=== PATIENT | male | born 1980 | race Caucasian/White ===

== ENCOUNTER 2023-06-05 00:07 | Emergency (ER) | payer OTHER, SELFPAY ==
--- NOTE | 2023-06-05 | ECG_ITS ---
Test Reason : CHEST PAIN Blood Pressure : / mmHG Vent. Rate : 062 BPM Atrial Rate : 062 BPM P-R Int : 136 ms QRS Dur : 084 ms QT Int : 410 ms P-R-T Axes : 067 039 060 degrees QTc Int : 416 ms Normal sinus rhythm Normal ECG When compared with ECG of 07-APR-2016 17:51, Vent. rate has decreased BY 32 BPM Referred By: Generic ED Physician Electronically Signed By:GIANNA CROCKETT
--- NOTE | ~2023-06-05 | XR_ITS ---
EXAMINATION: XR CHEST CLINICAL INFORMATION: Pain COMPARISON: 03/18/2016 TECHNIQUE: 2 views of the chest were obtained. FINDINGS: The lungs are clear with no focal consolidation. No evidence of pneumothorax, pulmonary edema, or pleural effusions. The cardiomediastinal silhouette is unremarkable. No acute osseous findings. XR/XR chest 2V IMPRESSION: No acute cardiopulmonary findings.
[2023-06-05 00:20] VITALS: BP 142/62; PULSE 67; RESP 20; TEMP 36.9; O2SAT 98; BMI 29.4
[2023-06-05 00:32] LABS: Hematocrit 41.9 % (42.0-52.0); Hemoglobin 14.7 g/dl (14.0-18.0); Mean Corpuscular HGB Conc 35.1 g/dl (31.0-36.0); Mean Corpuscular Hemoglobin 32.2 pg (27.0-33.0); Mean Corpuscular Volume 91.9 fL (80.0-98.0); Mean Platelet Volume 10.6 fL (9.4-12.4); Platelet Count 247 X10*3/uL (160-400); Red Blood Count 4.56 X10*6/uL (4.60-5.80); White Blood Count 10.2 X10*3/uL (4.8-10.8)
--- NOTE | 2023-06-05 00:37 | MHC.EDTECH ---
PATIENT EKG TAKEN ,BLOOD DRAWN IN TRIAGE BY THIS PCT ,PT WAS BROUGHT BACK TO ROOM AND WAS HOOKED UP TO [facility] ,WARM BLANKET GIVEN ,PT IS RESTING WAITING TO SEE PROVIDER .
[2023-06-05 00:48] LABS: Alanine Aminotransferase 19 U/L (0-40); Albumin Level 4.3 g/dL (3.5-5.0); Alkaline Phosphatase 81 U/L (39-117); Anion Gap 14 (12-20); Aspartate Amino Transferase 18 U/L (5-37); Bilirubin Total 0.6 mg/dL (0.0-1.0); Blood Urea Nitrogen 9 mg/dL (9-16); Calcium 9.2 mg/dL (8.4-10.2); Carbon Dioxide 23 mmol/L (22-29); Chloride 108 mmol/L (96-108); Creatinine Clr Calc Pharmacy 125.4; Estimated Glomerular Filt Rate > 60; Glucose Random 101 mg/dL (60-115); Potassium 3.7 mmol/L (3.3-5.1); Sodium 141 mmol/L (135-145); Total Protein 6.9 g/dL (6.5-8.0)
[2023-06-05 00:53] LABS: Troponin-I High Sensitivity < 2.7 ng/L (<3.5-35.0)
--- NOTE | 2023-06-05 01:14 | ED_ITS ---
HPI - Chest Pain General Chief Complaint: Chest Pain Stated Complaint: Chest pain Time Seen by Provider: 06/05/23 00:44 Source: patient, RN notes reviewed and old records reviewed Mode of arrival: ambulatory Limitations: no limitations History of Present Illness HPI narrative: 43-year-old male past medical history significant for GERD, anxiety presents for evaluation of left-sided chest pain. Patient reports that his pain started about 2 weeks ago He reports that his symptoms started after he got a new bed He has reports the symptoms worsened last night while at work He states that he had a physically stressful assignment at work last night and he had to leave early due to the pain He states the pain is intermittent ?like an electric shock. ? He reports that he smokes cigarettes and marijuana His symptoms also worsened after drinking an energy drink Denies any cardiac history No fevers, chills, shortness of breath, cough Related Data Allergies Allergy/AdvReac Type Severity Reaction Status Date / Time No Known Allergies Allergy Unverified 05/24/20 18:03 [No Known Allergies*] Review of Systems 2 Constitutional: Constitutional: Denies chills and Denies fever(s) ENT: Denies sore throat Cardiovascular: Cardiovascular: Reports chest pain and Denies dyspnea Respiratory: Respiratory: Denies cough and Denies dyspnea Gastrointestinal: Gastrointestinal: Denies abdominal pain, Denies nausea and Denies vomiting Musculoskeletal: Musculoskeletal: Denies back pain Integumentary/Breasts: Skin/Breast: Denies rash PMFSH Social History Social History Advance Directives: No Advance Directives Information Provided: Yes Physical Exam 2 Vital Signs: Vital Signs: Last Vital Signs Temp 98.5 F 06/05/23 00:20 Pulse 67 06/05/23 00:20 Resp 20 06/05/23 00:20 BP 142/62 H 06/05/23 00:20 Pulse Ox 98 06/05/23 00:20 O2 Del Method Room Air 06/05/23 00:20 BMI result Body Mass Index 29.4 Const: General: healthy appearing, comfortable, no acute distress, alert and awake Nutritional Appearance: well nourished Orientation/consciousness: p atient oriented x3 HEENT: Head: Yes normocephalic and Yes atraumatic Throat: Yes posterior oropharynx normal Eyes: Eyelids: Yes eyelids normal Conjunctivae: conjunctivae normal S clerae: sclerae normal Corneas: corneas normal Pupils: Equal, round and reactive pupils present EOM: EOMs intact bilaterally Neck: Neck: Yes full ROM Chest: Other: Some left chest wall tenderness in the midclavicular line. No crepitus, deformity Chest palpation & inspection: normal inspection of the chest Resp: Effort & Inspection: normal respiratory effort, able to speak in complete sentences, no audible wheezes and not labored Auscultation: clear to auscultation bilaterally Cardio: Rate: regular rate Rhythm: regular rhythm GI: Inspection: No distended Palpation (GI): Soft to palpation, not firm, nontender, no guarding and not rigid Auscultation: normoactive bowel sounds Skin: General skin exam: no rashes or lesions noted and elasticity normal Neuro: General: patient oriented x3 Cranial nerves: Yes Equal, round and reactive pupils present and Yes Bilaterally intact EOM present Cognition (Neuro): normal cognition Medical Decision Making Medical Decision Making [facility] Narrative: 43-year-old male presents for evaluation of chest pain. He is a smoker but otherwise has no risk factors for ACS. His EKG is nonischemic. Initial troponin is negative despite over 2 weeks after onset of symptoms. This effectively rules out ACS. Lower suspicion for pneumothorax, but the patient is a smoker so we waited chest x-ray. His pain is reproducible, so likely musculoskeletal in origin. There is likely a component of anxiety. He is minimally hypertensive to 142/62. This could be related to white coat syndrome/anxiety. No abdominal pain or radiation through to the back, AAA less likely. No risk factors for PE, he is not tachycardic, hypoxic or tachypneic Differential Diagnosis Differential Diagnoses: The differential diagnosis associated with the presentation includes Chest pain Chest wall pain ACS Anxiety Pneumothorax Admission/Observation Consideration of admission/observation: Escalation of care including admission/observation considered No acute emergent causes of chest pain were discovered and the patient can be discharged to follow-up with his PCP Lab Data [facility] Lab Attestation statement: I reviewed the patient's lab results. No leukocytosis. No significant anemia. However the hematocrit is just below normal at 41.9. No electrolyte abnormalities. Negative troponin 06/05/23 00:26 06/05/23 00:26 Labs: Lab Results 06/05/23 Range/Units 00:26 WBC 10.2 (4.8-10.8) X10*3/uL RBC 4.56 L (4.60-5.80) X10*6/uL Hgb 14.7 (14.0-18.0) g/dl Hct 41.9 L (42.0-52.0) % MCV 91.9 (80.0-98.0) fL MCH 32.2 (27.0-33.0) pg MCHC 35.1 (31.0-36.0) g/dl RDW 12.0 (11.0-16.0) % Plt Count 247 (160-400) X10*3/uL MPV 10.6 (9.4-12.4) fL Absolute Nucleated RBC 0.000 (0.0-0.012) X10*3/uL Nucleated RBC % (auto) 0.0 (0.0-0.2) /100WBC Sodium 141 (135-145) mmol/L Potassium 3.7 (3.3-5.1) mmol/L Chloride 108 (96-108) mmol/L Carbon Dioxide 23 (22-29) mmol/L Anion Gap 14 (12-20) BUN 9 (9-16) mg/dL Creatinine 0.87 (0.5-1.4) mg/dL Estim Creat Clear Calc 125.4 Estimated GFR > 60 Random Glucose 101 (60-115) mg/dL Calcium 9.2 (8.4-10.2) mg/dL Total Bilirubin 0.6 (0.0-1.0) mg/dL AST 18 (5-37) U/L ALT 19 (0-40) U/L Alkaline Phosphatase 81 (39-117) U/L Troponin I High Sens < 2.7 (<3.5-35.0) ng/L Total Protein 6.9 (6.5-8.0) g/dL Albumin 4.3 (3.5-5.0) g/dL Independent Interpretation I performed an independent interpretation of an: EKG (Normal sinus rhythm with a rate of 62 beats per minute. Nonischemic EKG) and Plain X-Ray (No pneumothorax) Discharge Plan Discharge Clinical Impression: Chest pain Patient Disposition: Home, Self-Care Instructions: Chest Pain (ED) Additional Instructions: Her workup in the emergency department today was reassuring. This includes your blood work, EKG, and chest x-ray. Your pain may be musculoskeletal in origin, there may be some component of anxiety contributing to your symptoms You may follow-up with your primary doctor
--- NOTE | 2023-06-05 01:51 | PC.NURSE ---
pt a&o, no sob or chest pain, reviewed discharge instructions with pt. pt verbalized understanding. Will continue to monitor.
== END 2023-06-05 01:52 | disposition home or self-care (01) ==
PROVIDERS: Emergency Provider Emergency Medicine
DX: R07.89 Other chest pain (principal); F41.9 Anxiety disorder, unspecified; F17.210 Nicotine dependence, cigarettes, uncomplicated; Z71.6 Tobacco abuse counseling; F12.90 Cannabis use, unspecified, uncomplicated; Z79.899 Other long term (current) drug therapy
CPT/HCPCS: 36415; 71046; 80053; 84484; 85027; 93005; 99283

== ENCOUNTER 2023-09-08 23:38 | Emergency (ER) | payer OTHER, SELFPAY ==
[2023-09-08 23:50] VITALS: BP 133/76; PULSE 64; RESP 16; TEMP 36.6; O2SAT 98; BMI 28.7
[2023-09-09 00:18] LABS: MANUAL DIFF FLAG NO
[2023-09-09 00:20] LABS: Basophils Absolute Auto 0.1 X10*3/uL (0.0-0.2); Eosinophils Percent Auto 0.5 % (0-4); Hemoglobin 16.3 g/dl (14.0-18.0); Imm Gran Abs Auto 0.02 X10*3/uL (0.00-0.03); Imm Gran Pct Auto 0.2 % (0.0-0.4); Lymphocytes Absolute Auto 3.3 X10*3/uL (1.2-4.9); Lymphocytes Percent Auto 41.4 % (20-40); Mean Corpuscular HGB Conc 36.2 g/dl (31.0-36.0); Mean Corpuscular Hemoglobin 31.9 pg (27.0-33.0); Mean Corpuscular Volume 88.1 fL (80.0-98.0); Mean Platelet Volume 10.5 fL (9.4-12.4); Monocytes Absolute Auto 0.5 X10*3/uL (0.1-1.2); Monocytes Percent Auto 6.6 % (2-11); Neutrophils Absolute Auto 4.1 x10*3/uL (2.0-8.3); Neutrophils Percent Auto 50.3 % (45-73); Platelet Count 261 X10*3/uL (160-400); Red Blood Count 5.11 X10*6/uL (4.60-5.80); Red Cell Distribution Width 11.8 % (11.0-16.0); White Blood Count 8.1 X10*3/uL (4.8-10.8)
[2023-09-09 00:44] LABS: Alanine Aminotransferase 25 U/L (0-40); Albumin Level 4.4 g/dL (3.5-5.0); Alkaline Phosphatase 83 U/L (39-117); Anion Gap 15 (12-20); Aspartate Amino Transferase 24 U/L (5-37); Bilirubin Total 0.6 mg/dL (0.0-1.0); Blood Urea Nitrogen 6 mg/dL (9-16); Calcium 8.9 mg/dL (8.4-10.2); Carbon Dioxide 26 mmol/L (22-29); Chloride 105 mmol/L (96-108); Glucose Fasting 139 mg/dL (60-99); Potassium 3.2 mmol/L (3.3-5.1); Sodium 143 mmol/L (135-145); Total Protein 7.6 g/dL (6.5-8.0)
[2023-09-09 00:56] LABS: Creatinine Clr Calc Pharmacy 111.2; Estimated Glomerular Filt Rate > 60
[2023-09-09 00:59] LABS: Influenza A PCR NEGATIVE (Negative); Influenza B PCR NEGATIVE (Negative); Resp Syncy Virus RNA Qual PCR NEGATIVE (Negative); SARS COV2 PCR INHOUSE NEGATIVE (Negative)
--- NOTE | 2023-09-09 05:30 | PC.NURSE ---
Assumed care of pt. During assessment, pt noted to be breathing rapidly during explanation, and endorsed anxiety with concerns. Currently asymptomatic and states that symptoms have largely resolved.
--- NOTE | 2023-09-09 06:45 | ED_ITS ---
HPI - General Adult General Chief complaint: General Medical Stated complaint: Not feeling well Time Seen by Provider: 09/09/23 06:42 Source: patient Mode of arrival: ambulatory Limitations: no limitations History of Present Illness HPI narrative: Patient is a 43 year old assigned female at with no reported medical history presenting to the emergency department today feeling generally unwell and concerned that he is dehydrated. Patient states that over the last 4 days he has felt generally unwell and is concerned that he is dehydrated. Patient denies any dizziness, lightheadedness, abdominal pain, nausea, vomiting, fever, chills, blurry vision, double vision, loss of vision, chest pain, difficulty breathing, shortness of breath, back pain, night sweats, pain with urination, increased urinary frequency, increased urinary urgency, blood in his urine or stool, syncope or a near syncopal episode, recent trauma or falls, bowel incontinence, bladder incontinence, bowel retention, bladder retention, or any other complaints at this time. Onset (ago): day(s) (4) Severity: mild Severity scale (1-10): 2 Relieving factors: none Exacerbating factors: none Associated symptoms: denies other symptoms Treatments prior to arrival: none Related Data Allergies Allergy/AdvReac Type Severity Reaction Status Date / Time No Known Allergies Allergy Unverified 05/24/20 18:03 [No Known Allergies*] Review of Systems 2 Constitutional: Constitutional: Reports no additional constitutional complaints, Denies chills, Denies fever(s) and Denies night sweats Eyes: Eyes: Reports no additional eye complaints, Denies blurry vision, Denies change in vision, Denies diplopia, Denies eye discharge, Denies loss of vision and Denies eye pain ENT: Denies dizziness Cardiovascular: Cardiovascular: Reports no additional cardiovascular complaints, Denies chest pain, Denies lightheadedness, Denies Loss of Consciousness and Denies dyspnea Respiratory: Respiratory: Reports no additional respiratory complaints and Denies dyspnea Gastrointestinal: Gastrointestinal: Reports no additional gastrointestinal complaints, Denies abdominal pain, Denies melena, Denies hematochezia, Denies change in bowel habits and Denies change in stool character Genitourinary: Genitourinary: Reports no additional male genitourinary complaints, Denies hematuria, Denies oliguria, Denies difficulty urinating, Denies dysuria, Denies urinary frequency, Denies urinary hesitancy, Denies urinary incontinence and Denies urinary urgency Musculoskeletal: Musculoskeletal: Reports no additional musculoskeletal complaints, Denies numbness and Denies tingling Neurologic: Denies dizziness, Denies loss of vision, Denies numbness and Denies tingling Psychiatric: Psychiatric: Reports no additional psychiatric complaints Endocrine: Endocrine: Reports no additional endocrine complaints Hematologic/Lymphatic: Hematologic/Lymphatic: Reports no additional hematologic/lymphatic complaints Allergic/Immunologic: Allergic/Immunologic: Reports no additional allergic/immunologic complaints PMFSH Past Medical History Attestation statement: The following information was validated with the patient. Source: old records reviewed and nursing notes reviewed Onset Date is defined in the Problem List Problems that require an onset date and time if occurred within 24 hrs of arrival to the ED Aortic Dissection and Rupture; Neurologic impairment; Cardiopulmonary Arrest; Endotracheal Intubation; Insertion or Replacement of Mechanical Circulatory Assist Device Social History Social History Smoked in Last 30 Days: Yes Use of substances other than those prescribed or required for medical reasons: Yes Substance Use Type: Marijuana Substance Use Frequency: Chronic Longstanding Advance Directives: No Advance Directives Information Provided: Yes Physical Exam ED Vital Signs: Vital Signs - 24 hr 09/08/23 23:50 Temperature 98 F Pulse Rate 64 Respiratory Rate 16 Blood Pressure 133/76 Pulse Oximetry 98 Oxygen Delivery Method Room Air BMI result Body Mass Index 28.7 Const General: cooperative, no acute distress, alert and awake Nutritional Appearance: well nourished Orientation/consciousness: patient oriented x3 Limitations: no limitations [facility] Head: Yes normal to inspection and Yes atraumatic Ears: hearing grossly normal bilaterally and external ears normal General nose exam: Normal external nose present, no nasal discharge noted and no epistaxis Face and sinus: Yes normal facial exam, No abrasion and No laceration Mouth: Normal oral and palatal mucosa present, no drooling and no muffled voice Eyes General: appearance normal, both eyes and all related structures Periorbital: periorbital findings normal Eyelids: Yes eyelids normal Conjunctivae: conjunctivae normal Pupils: Equal, round and reactive pupils present EOM: EOMs intact bilaterally Neck Neck: Yes normal visual inspection, Yes full ROM and Yes no lymphadenopathy Chest Chest palpation & inspection: normal inspection of the chest Resp Effort & Inspection: normal respiratory effort and able to speak in complete sentences GI Inspection: Yes normal to inspection Neuro General: patient oriented x3 and moves all extremities Cranial nerves: Yes Equal, round and reactive pupils present Cognition (Neuro): normal cognition Motor exam (neuro): 5/5 motor strength present throughout Sensory Exam: Normal double simultaneous stimulation for sensation Coordination: [id number] test normal Extrem General: Yes normal to inspection, Yes full ROM and Yes capillary refill normal Psych Appearance: grossly normal Mental Status: mental status grossly normal Affect: normal affect Attitude: cooperative Thought process: Normal thought process present Thought content: Normal thought content present Insight: Good insight present (Psych) Medical Decision Making Medical Decision Making MDM Narrative: Patient is a 43 year old assigned male at with no reported medical history presenting to the emergency department today feeling generally unwell and concerns of dehydration. Patient's physical exam was unremarkable. Patient's blood work was unremarkable. I explained my physical exam findings as well as all test results to the patient. I answered all questions asked by the patient. I stressed the importance of the patient taking his medication as prescribed. I stressed the importance of the patient following up with his primary care provider. I stressed the importance of the patient returning to the emergency department immediately if his symptoms were to worsen or if he were to develop any dizziness, shortness of breath, difficulty breathing, chest pain, blurry vision, loss of vision, nausea, vomiting, abdominal pain, fever, chills, back pain, or any other complaints. Patient verbalized agreement and understanding with this treatment plan and discharge. Differential Diagnosis Differential Diagnoses: The differential diagnosis associated with the presentation includes Viral illness COVID-19 Influenza RSV Admission/Observation Consideration of admission/observation: Escalation of care including admission/observation considered Patient would have been admitted to the hospital had his work up had any findings where hospital admission was appropriate and his clinical presentation warranted hospital admission. Lab Data MDM Lab Attestation statement: I reviewed the patient's lab results. My interpretation of these studies and their corresponding values is that they are grossly normal. 09/09/23 00:14 09/09/23 00:14 Labs: Lab Results 09/09/23 Range/Units 00:14 WBC 8.1 (4.8-10.8) X10*3/uL RBC 5.11 (4.60-5.80) X10*6/uL Hgb 16.3 (14.0-18.0) g/dl Hct 45.0 (42.0-52.0) % MCV 88.1 (80.0-98.0) fL MCH 31.9 (27.0-33.0) pg MCHC 36.2 H (31.0-36.0) g/dl RDW 11.8 (11.0-16.0) % Plt Count 261 (160-400) X10*3/uL MPV 10.5 (9.4-12.4) fL Immature Gran % (Auto) 0.2 (0.0-0.4) % Neut % (Auto) 50.3 (45-73) % Lymph % (Auto) 41.4 H (20-40) % [place] % (Auto) 6.6 (2-11) % Eos % (Auto) 0.5 (0-4) % Baso % (Auto) 1.0 (0-2) % Lymph # (Auto) 3.3 (1.2-4.9) X10*3/uL [place] # (Auto) 0.5 (0.1-1.2) X10*3/uL Eos # (Auto) 0.0 (0.0-0.4) X10*3/uL Baso # (Auto) 0.1 (0.0-0.2) X10*3/uL Abs Immat Gran (auto) 0.02 (0.00-0.03) X10*3/uL Absolute Neuts (auto) 4.1 (2.0-8.3) x10*3/uL Absolute Nucleated RBC 0.000 (0.0-0.012) X10*3/uL Nucleated RBC % (auto) 0.0 (0.0-0.2) /100WBC Sodium 143 (135-145) mmol/L Potassium 3.2 L (3.3-5.1) mmol/L Chloride 105 (96-108) mmol/L Carbon Dioxide 26 (22-29) mmol/L Anion Gap 15 (12-20) BUN 6 L (9-16) mg/dL Creatinine 0.97 (0.5-1.4) mg/dL Estim Creat Clear Calc 111.2 Estimated GFR > 60 Fasting Glucose 139 H (60-99) mg/dL Calcium 8.9 (8.4-10.2) mg/dL Total Bilirubin 0.6 (0.0-1.0) mg/dL AST 24 (5-37) U/L ALT 25 (0-40) U/L Alkaline Phosphatase 83 (39-117) U/L Total Protein 7.6 (6.5-8.0) g/dL Albumin 4.4 (3.5-5.0) g/dL Influenza Type A (PCR) NEGATIVE (Negative) Influenza Type B (PCR) NEGATIVE (Negative) RSV RNA Qual (PCR) NEGATIVE (Negative) SARS-CoV-2 RNA (RT-PCR) NEGATIVE (Negative) Discharge Plan Discharge Clinical Impression: Viral illness Patient Disposition: Home, Self-Care Instructions: Viral Syndrome (ED) Additional Instructions: Follow up with your primary care provider. Return to the emergency department immediately if your symptoms worsen or if you develop any dizziness, shortness of breath, difficulty breathing, chest pain, blurry vision, loss of vision, nausea, vomiting, abdominal pain, fever, chills, back pain, or any other complaints. Referrals: Tyson Edwards MD [Primary Care Provider] - Stand Alone Forms: Work/School Release Interventions: ED Discharge Assessment Last Done: 09/09/23 06:55 Discharge Date/Time: 09/09/23 06:56 Print Language: [place]
== END 2023-09-09 06:56 | disposition home or self-care (01) ==
PROVIDERS: Emergency Provider Student in an Organized Health Care Education/Training Program; PCP Family Medicine
DX: B34.9 Viral infection, unspecified (principal); Z20.822 Contact with and (suspected) exposure to COVID-19; Z20.828 Contact with and (suspected) exposure to other viral communicable diseases
CPT/HCPCS: 0241U; 80053; 85025; 99283; 99284

== ENCOUNTER 2024-10-02 10:00 | Emergency (ER) | payer OTHER, SELFPAY ==
[2024-10-02 10:12] VITALS: BP 139/73; PULSE 83; RESP 18; TEMP 36.2; O2SAT 97; BMI 24.7
[2024-10-02 11:53] LABS: MANUAL DIFF FLAG NO
[2024-10-02 11:55] LABS: Basophils Percent Auto 0.6 % (0-2); Eosinophils Percent Auto 0.2 % (0-4); Hematocrit 48.8 % (42.0-52.0); Hemoglobin 17.6 g/dl (14.0-18.0); Imm Gran Abs Auto 0.01 X10*3/uL (0.00-0.03); Imm Gran Pct Auto 0.2 % (0.0-0.4); Lymphocytes Absolute Auto 2.1 X10*3/uL (1.2-4.9); Lymphocytes Percent Auto 39.8 % (20-40); Mean Corpuscular HGB Conc 36.1 g/dl (31.0-36.0); Mean Corpuscular Hemoglobin 31.8 pg (27.0-33.0); Mean Corpuscular Volume 88.2 fL (80.0-98.0); Mean Platelet Volume 11.3 fL (9.4-12.4); Monocytes Absolute Auto 0.7 X10*3/uL (0.1-1.2); Monocytes Percent Auto 12.8 % (2-11); Neutrophils Absolute Auto 2.4 x10*3/uL (2.0-8.3); Neutrophils Percent Auto 46.4 % (45-73); Platelet Count 210 X10*3/uL (160-400); Red Blood Count 5.53 X10*6/uL (4.60-5.80); Red Cell Distribution Width 11.7 % (11.0-16.0); White Blood Count 5.2 X10*3/uL (4.8-10.8)
[2024-10-02 12:08] LABS: Anion Gap 14 (12-20); Blood Urea Nitrogen 8 mg/dL (9-16); Calcium 8.8 mg/dL (8.4-10.2); Carbon Dioxide 27 mmol/L (22-29); Chloride 99 mmol/L (96-108); Creatinine Clr Calc Pharmacy 103.5; Estimated Glomerular Filt Rate > 60; Glucose Random 119 mg/dL (60-115); Potassium 3.2 mmol/L (3.3-5.1); Sodium 137 mmol/L (135-145)
[2024-10-02 12:31] LABS: Influenza A PCR POSITIVE (Negative); Influenza B PCR NEGATIVE (Negative); Resp Syncy Virus RNA Qual PCR NEGATIVE (Negative); SARS COV2 PCR INHOUSE NEGATIVE (Negative)
--- NOTE | 2024-10-02 12:40 | ED.NAVMDI ---
HPI - Nausea/Vomiting/Diarrhea General Chief complaint: Nausea/Vomiting/Diarrhea Stated complaint: Dehydrated Time Seen by Provider: 10/02/24 12:42 Source: patient Mode of arrival: ambulatory Limitations: no limitations History of Present Illness ED Provider: Veronika Ellison APRN HPI Narrative: 44 yo male with history of GERD presents to the ER with 2-3 days of body aches, NBNB emesis, diarrhea with no associated abdominal pain, fever. Today felt tingling all over his body bringing him to the ER. No chest pain, shortness of breath, skin rash, neck pain/stiffness, cough, headache. No recent travel or sick contact. Associated nausea: Yes Related Data Previous Rx's ?Medication ?Instructions ?Recorded ondansetron 4 mg disintegrating 4 mg PO Q6H PRN nausea and 10/02/24 tablet vomiting #12 tabs Allergies Allergy/AdvReac Type Severity Reaction Status Date / Time No Known Allergies Allergy Verified 10/02/24 10:14 [No Known Allergies*] Review of Systems Review of Systems: Yes all other systems are reviewed and are negative Constitutional: Constitutional: Reports no additional constitutional complaints, Reports body ache(s), Denies chills, Denies fever(s), Denies headache(s) and Denies weakness Eyes: Eyes: Reports no additional eye complaints and Denies change in vision ENT: Reports system reviewed and no additional complaints, except as documented, Denies dizziness, Denies headache(s), Denies nasal congestion, Denies nasal discharge and Denies neck pain Cardiovascular: Cardiovascular: Reports no additional cardiovascular complaints, Denies chest pain, Denies leg edema and Denies dyspnea Respiratory: Respiratory: Reports no additional respiratory complaints, Denies cough and Denies dyspnea Gastrointestinal: Gastrointestinal: Reports no additional gastrointestinal complaints, Denies abdominal pain, Reports diarrhea, Reports nausea and Reports vomiting Genitourinary: Genitourinary: Denies urinary incontinence Musculoskeletal: Musculoskeletal: Reports no additional musculoskeletal complaints, Denies back pain, Denies arthralgias, Denies joint swelling, Denies neck pain, Denies numbness and Denies tingling Integumentary/Breasts: Skin/Breast: Reports system reviewed and no additional complaints, except as docu and Denies rash Neurologic: Reports system reviewed and no additional complaints, except as documented, Denies Abnormal speech present, Denies dizziness, Denies headache(s), Denies numbness, Denies tingling and Denies weakness [facility] Past Medical History Attestation statement: The following information was validated with the patient. Source: old records reviewed and nursing notes reviewed Social History Social History Substance Use Type: Marijuana Advance Directives: No Advance Directives Information Provided: Yes Do you have a plan to hurt others: No Plan Physical Exam Vital Signs: Vital Signs: Last Vital Signs Temp 98.9 F 10/02/24 12:49 Pulse 96 10/02/24 12:49 Resp 18 10/02/24 12:49 BP 124/71 10/02/24 12:49 Pulse Ox 96 10/02/24 12:49 O2 Del Method Room Air 10/02/24 12:49 BMI result Body Mass Index 24.7 Const: General: cooperative, healthy appearing, comfortable and no acute distress Orientation/consciousness: patient oriented x3 Limitations: no limitations HEENT: Head: Yes normal to inspection Ears: hearing grossly normal bilaterally and TM's normal bilaterally General nose exam: Normal external nose present Face and sinus: Yes normal facial exam Mouth: Normal oral and palatal mucosa present Throat: Yes posterior oropharynx normal, Yes tonsils normal and Yes uvula midline Eyes: General: appearance normal, both eyes and all related structures Pupils: Equal, round and reactive pupils present Neck: Neck: Yes normal visual inspection, Yes full ROM, Yes no lymphadenopathy and Yes no meningeal signs Chest: Chest palpation & inspection: normal inspection of the chest Resp: Effort & Inspection: normal respiratory effort Auscultation: clear to auscultation bilaterally Cardio: Rate: regular rate Rhythm: regular rhythm Peripheral pulses: Peripheral pulses 2+ throughout GI: Inspection: Yes normal to inspection Palpation (GI): Soft to palpation and nontender Auscultation: normal bowel sounds Back/Spine/Pelvis: Thoracic/Lumbar Spine: thoracic and lumbar spine normal to inspection Skin: General skin exam: no rashes or lesions noted Neuro: General: patient oriented x3, no meningeal signs, no focal motor deficits and normal sensation to monofilament Cranial nerves: Yes Equal, round and reactive pupils present Cognition (Neuro): normal cognition Speech: No Abnormal speech present Gait exam (Neuro): Normal gait present Motor exam (neuro): 5/5 motor strength present throughout Extrem: General: Yes normal to inspection, Yes no pedal edema and Yes no calf tenderness Course Course Course Narrative: Influenza A positive. Patient sipping on clear liquids, labs show milk hypokalemia otherwise normal. Will give rx for zofran and patient can orally rehydrate at home. Patient has normal vs, does not appear clinically dehydrated. Would not give tamiflu d/t current symptoms and reported side effects. patient agreeable to this. Reviewed worrisome signs/symptoms with patient and when to seek additional care. Comfortable with discharge home. Medical Decision Making Medical Decision Making [facility] Narrative: 44 yo male with history of GERD presents to the ER with 2-3 days of body aches, NBNB emesis, diarrhea with no associated abdominal pain, fever. Today felt tingling all over his body bringing him to the ER. No chest pain, shortness of breath, skin rash, neck pain/stiffness, cough, headache. No recent travel or sick contact. Abdomen soft/nonfocal VSS Will send labs, obtain viral testing Differential Diagnosis Differential Diagnoses: The differential diagnosis associated with the presentation includes Viral syndrome, gastroenteritis, influenza Low suspicion for SBO, appendicitis, renal colic, pyelo with no focal abdominal pain, CVAT Admission/Observation Consideration of admission/observation: Escalation of care including admission/observation considered see course of care Lab Data [facility] Lab Attestation statement: I reviewed the patient's lab results. 10/02/24 11:22 10/02/24 11:23 Labs: Lab Results 10/02/24 10/02/24 Range/Units 11:22 11:23 WBC 5.2 (4.8-10.8) X10*3/uL RBC 5.53 (4.60-5.80) X10*6/uL Hgb 17.6 (14.0-18.0) g/dl Hct 48.8 (42.0-52.0) % MCV 88.2 (80.0-98.0) fL MCH 31.8 (27.0-33.0) pg MCHC 36.1 H (31.0-36.0) g/dl RDW 11.7 (11.0-16.0) % Plt Count 210 (160-400) X10*3/uL MPV 11.3 (9.4-12.4) fL Immature Gran % (Auto) 0.2 (0.0-0.4) % Neut % (Auto) 46.4 (45-73) % Lymph % (Auto) 39.8 (20-40) % [place] % (Auto) 12.8 H (2-11) % Eos % (Auto) 0.2 (0-4) % Baso % (Auto) 0.6 (0-2) % Lymph # (Auto) 2.1 (1.2-4.9) X10*3/uL [place] # (Auto) 0.7 (0.1-1.2) X10*3/uL Eos # (Auto) 0.0 (0.0-0.4) X10*3/uL Baso # (Auto) 0.0 (0.0-0.2) X10*3/uL Abs Immat Gran (auto) 0.01 (0.00-0.03) X10*3/uL Absolute Neuts (auto) 2.4 (2.0-8.3) x10*3/uL Absolute Nucleated RBC 0.000 (0.0-0.012) X10*3/uL Nucleated RBC % (auto) 0.0 (0.0-0.2) /100WBC Sodium 137 (135-145) mmol/L Potassium 3.2 L (3.3-5.1) mmol/L Chloride 99 (96-108) mmol/L Carbon Dioxide 27 (22-29) mmol/L Anion Gap 14 (12-20) BUN 8 L (9-16) mg/dL Creatinine 0.94 (0.5-1.4) mg/dL Estim Creat Clear Calc 103.5 Estimated GFR > 60 Random Glucose 119 H (60-115) mg/dL Calcium 8.8 (8.4-10.2) mg/dL Influenza Type A (PCR) POSITIVE A (Negative) Influenza Type B (PCR) NEGATIVE (Negative) RSV RNA Qual (PCR) NEGATIVE (Negative) SARS-CoV-2 RNA (RT-PCR) NEGATIVE (Negative) Tests considered The following testing was considered but not selected: Low suspicion for SBO, appendicitis, renal colic, pyelo with no focal abdominal pain, CVAT requiring CT imaging Prescription Management I considered prescription management with: Antiviral Discharge Plan Discharge Clinical Impression: Influenza A Patient Disposition: Home, Self-Care Instructions: Influenza (ED) Additional Instructions: Your blood work looks good We discussed not using Tamiflu because it may cause you to have more vomiting/diarrhea Start with clear liquids, then advance diet as tolerated Prescriptions: New ondansetron 4 mg tablet,disintegrating 4 mg PO Q6H PRN (Reason: nausea and vomiting) Qty: 12 0RF Referrals: Tyson Edwards MD [Primary Care Provider] - 1 week Stand Alone Forms: Work/School Release Interventions: ED Discharge Assessment Last Done: 10/02/24 12:49 Discharge Date/Time: 10/02/24 12:50 Print Language: Romansh
[2024-10-02 12:45] VITALS: BP 124/71; PULSE 96; RESP 18; TEMP 37.2; O2SAT 96
[2024-10-02 12:49] VITALS: BP 124/71; PULSE 96; RESP 18; TEMP 37.2; O2SAT 96
--- OUTSIDE RECORDS SUMMARY | 2024-10-02 12:49 | XMS_ITS | Continuity of Care Document ---
Author Organization [facility] Isaiah lt Address [address] [place] [address]- Care Team Providers Care Propagator Name Role Phone Tyson Edwards MD Primary Care Physician [phone] Encounter [facility] ACCT R [id number] Date(s): 09/05/24 - 09/12/24 [facility] Adult [address] [place] [address]- Encounter Diagnosis Well adult exam(Discharge Diagnosis) - 09/10/24 Tobacco abuse(Discharge Diagnosis) - 09/10/24 Attending Physician: Tyson Edwards MD Encounter Type: Office Visit Allergies, Adverse Reactions, Alerts No Known Allergies Immunizations Given and Recorded Vaccine Date Status Refusal Reason influenza virus vaccine, inactivated 1 09/05/24 Gi guillermo influenza virus vaccine, inactivated 2 06/09/23 Gi guillermo influenza virus vaccine, inactivated 07/12/22 Ernst rded influenza virus vaccine, inactivated 07/12/21 Give n influenza virus vaccine, inactivated 08/06/20 Ernst rded influenza virus vaccine, inactivated 08/04/17 Ernst rded [id number] bivalent booster vax 07/12/22 Recorded SARS-CoV-2 (COVID-19) mRNA BNT-162b2 vac 08/07/21 Recorded SARS-CoV-2 (COVID-19) mRNA BNT-162b2 vac 01/06/21 Recorded tetanus/diphtheria/pertussis, acel(Tdap) 11/18/17 Recorded 1Result Comment: [facility]: [id number] Screening checklist reviewed with patient. Negative for any contraindications. 2Result Comment: [id number] Medications omeprazole 20 mg oral enteric coated capsule 1 capsule, By Mouth, 2 times a day, # 60 capsule, 5 Refills, Maintenance, 02/20/24 1:21:00 PM EDT, [facility], 178, cm, 06/09/23 15:27:00 EDT, Height Start Date: 02/20/24 Status: Ordered Quantity: 60.0 Unit: capsule Repeat number: 1 varenicline 1mg tablet See Instructions, TAKE ONE-HALF TABLET BY MOUTH EVERY DAY FOR 3 DAYS THEN TAKE ONE-HALF TABLET BY MOUTH TWICE A DAY FOR 4 DAYS THEN TAKE ONE TABLET BY MOUTH TWICE A DAY with a full glass of water, # 60 tablet, 2 Refills, Maintenance, 09/05/24 4:45:00 PM EST, [facility], 173.3, cm,09/05/24 16:18:00 EST, Height Start Date: 09/05/24 Status: Ordered Quantity: 60.0 Unit: tablet Repeat number: 3 Problem List Condition Confirmation Course Effective Dates Status Health St atus Informant Anxiety disorder Confirmed Active GERD (gastroesophageal reflux disease) Confirmed Active Panic attacks Confirmed Active Panic disorder Confirmed Active Tobacco abuse Confirmed Active Diagnosis Diagnosis Type Effective Dates Health Status Cl inical Service Informant Well adult exam Discharge Diagnosis 09/10/24 Tobacco abuse Discharge Diagnosis 09/10/24 Vital Signs Most recent to oldest [Reference Range]: 1 Height 173.3 cm (09/05/24 4:18 PM) Weight 82.3 kg (09/05/24 4:18 PM) Oxygen Saturation [94-100 %] 100 % (09/05/24 4:18 PM) Pulse Rate [55-90 bpm] 64 bpm (09/05/24 4:18 PM) Body Mass Index [18.5-24.99 kg/m2] 27.4 kg/m2 *H* (09/05/24 4:18 PM) Blood Pressure [90-138/55-84 mm Hg] 118/ 71mm Hg (09/05/24 4:18 PM) Mode of Delivery (Oxygen) Room air (09/05/24 4:18 PM) Blood pressure sites Arm, right (09/05/24 4:18 PM) Weight Obtained Via Standing scale (09/05/24 4:18 PM) Social History Social History Type Response Smoking Status 10 or more cigarette s (1/2 pack or more)/day in last 30 days entered on: 07/05/19 Sex Sex Representation Male (finding) Note * Duncan Velez: PERFORM Event Display: Patient Education/Instruction Authored Date: Ambulatory Adult Visit Summary [facility] [address] [place] [address] Name: GURPREET DUNBAR : 1980?? Visit: 09/05/2024 15:44?? Ambulatory Visit Instructions ?? Your Care Team Primary Care Provider Tyson Edwards MD? This Visit Provider Tyson Edwards MD Vitals Signs Pulse Rate: 64 bpm Height: 173.3 cm Systolic Blood Pressure: 118 mm Hg Weight: 82.3 kg Diastolic Blood Pressure: 71 mm Hg Body Mass Index:??27.4 kg/m2??High Oxygen Saturation: 100 % Body surface area: 1.99 Medications The list below reflects the information in our records and provided by you today along with any changes made during this visit. Please continue your medications until treatment is completed or stopped by your provider. If this is different from the information you have or there are other questions,please contact the prescribing provider. What How Much When Instructions Unchanged Omeprazole (omeprazole 20 mg oral enteric coated capsule) 1 capsule Oral Twice a day Unchanged Varenicline (varenicline 1mg tablet) See instructions TAKE ONE-HALF TABLET BY MOUTH EVERY DAY FOR 3 DAYS THEN TAKE ONE-HALF TABLET BY MOUTH TWICE A DAY FOR 4 DAYS THEN TAKE ONE TABLET BY MOUTH TWICE A DAY with a full glass of water ?? Pickup at [facility] Pharmacy Information [facility]: [address], [place] [id number] [phone] ?? What How Much When Comments Stop Taking Barium Sulfate (Readi-Cat 2 oral suspension) See instructions 2 bottles as per radiology recommendations ?? Medications and Immunizations Administered Immunizations Given During Visit Given Vaccine Date influenza virus vaccine, inactivated 09/05/2024 Comments : [facility]: [id number] Screening checklist reviewed with patient. Negative for any contraindications. Medications Given During Visit Medication ?? Dose ?? Route ?? Last Dose Times ?? influenza virus vaccine, inactivated?0.50 mL?? Intramuscular?? 05-SEP-2024 16:29:00.00?? Allergies (NKA means No Known Allergies) NKA Common Emergency Awareness Tips IS IT A STROKE? Act FAST and Check for these signs: FACE Does the face look uneven? ARM Does one arm drift down? SPEECH Does their speech sound strange? TIME Call at any sign of stroke ?? Heart Attack Signs Chest discomfort: Most heart attacks involve discomfort in the center of the chest and lasts more than a few minutes, or goes away and comes back. It can feel like uncomfortable pressure, squeezing, fullness or pain. Discomfort in upper body: Symptoms can include pain or discomfort in one or both arms, back, neck, jaw or stomach. Shortness of breath: With or without discomfort. Other signs: Breaking out in a cold sweat, nausea, or lightheaded. Remember, MINUTES DO MATTER. If you experience any of these heart attack warning signs, call to get immediate medical attention! ?? Smoking can increase your chances of developing chronic health problems and can cause harmful effects to other family members in your house. If you smoke, you are strongly encouraged to quit. Please call [facility] at [phone] or 3-690-445[employer] ([phone]) or log in to [email or web address] for referrals to smoking cessation programs. ?? The National Suicide Prevention Hotline is available 30/03 if you or someone you know needs to find a reason to keep living. By calling 9-822-990-Gradient X (9397) you'll be connected to a skilled, trained counselor at a crisis center in your area. [facility] Portal You can view and manage your care through the patient portal or by using a health care mark of your choosing. [employer] is a website that allows you to securely view your medical information including your hospital discharge summary, office visit summaries, medications and follow-up visits. You can also request appointments, renew medications, and request access to your medical information using a health care mark of your choosing, or just ask a question. You can enroll at [email or web address] or register during your next office visit. [facility], in keeping with [facility] guidance, no longer requires face masks for staff, patientsor visitors in most situations. Similiar to time spent indoors at other locations, there is the chance that you were exposed to repiratory viruses during your time with us (such as flu or COVID-19). If you develop symptoms concerning for a viral respiratory infection, please seek testing (and treatment if indicated) from your medical provider or home test kit. ?? Disclaimer: The information provided is of a general nature and is intended to be used in conjunction with the recommendations and advice of your health care practitioner. Every effort has been made to ensure that the information provided is accurate and complete at the time it is provided to you however, as your needs change, or, as new information becomes available, different or additional instructions may be required. ?? If you have questions, please consult with your primary care provider or pharmacist, as appropriate. This information is not intended to serve as substitution for assessment and evaluation by a qualified health care provider. If you do not have a primary care provider, you may find a [facility] provider by calling [facility] at [phone]. Patient Care team information Care Team Personnel Name: Tyson Edwards MD Position: [facility] Physician - Primary Care Member Role: PCP Address: [address] [place] [id number] Telecom: Care Team Related Persons Name: ROSANGELA CORTES Name: NICKIE DUNBAR Insurance Providers Guarantor name: GURPREET DUNBAR Health Plan Information #: 1 Payer: [facility] FF NON BHP HMO Member Number: [id number] Policy Number: NA Group Number: NA Health Plan Information #: 2 Payer: [facility] FF NON BHP HMO Member Number: [id number] Policy Number: NA Group Number: NA
--- OUTSIDE RECORDS SUMMARY | 2024-10-02 12:49 | XMS_ITS | Continuity of Care Document ---
Author Organization [facility] Isaiah lt Address [address] [place] [address]- Care Team Providers Care Radio Program Director Name Role Phone Tyson Edwards MD Primary Care Physician [phone] [place] [facility] [place] [id number] Date(s): 05/24/24 - 09/21/24 [facility] Adult [address] [place] [address]- Attending Physician: Tyson Edwards MD Encounter Type: Pre Office Visit Allergies, Adverse Reactions, Alerts No Known Allergies Immunizations Given and Recorded Vaccine Date Status Refusal Reason influenza virus vaccine, inactivated 1 09/05/24 Gi guillermo influenza virus vaccine, inactivated 2 06/09/23 Gi guillermo influenza virus vaccine, inactivated 07/12/22 Ernst rded influenza virus vaccine, inactivated 07/12/21 Give n influenza virus vaccine, inactivated 08/06/20 Ernst rded influenza virus vaccine, inactivated 08/04/17 Ernst rded [id number] bivalent booster vax 07/12/22 Recorded SARS-CoV-2 (COVID-19) mRNA BNT-162b2 vac 08/07/21 Recorded SARS-CoV-2 (COVID-19) mRNA BNT-162b2 vac 01/06/21 Recorded tetanus/diphtheria/pertussis, acel(Tdap) 11/18/17 Recorded 1Result Comment: [facility]: [id number] Screening checklist reviewed with patient. Negative for any contraindications. 2Result Comment: [id number] Medications omeprazole 20 mg oral enteric coated [...] disorder Confirmed Active Tobacco abuse Confirmed Active Social History Social History Type Response Smoking Status 10 or more cigarette s (1/2 pack or more)/day in last 30 days entered on: 07/05/19 Sex Sex Representation Male (finding) Patient Care team information Care Team Personnel Name: Jerry HOPKINS, Tyson Coppola Position: [facility] Physician - Primary Care Member Role: PCP Address: [address] [place] [id number] Telecom: Care Team Related Persons Name: ROSANGELA CORTES Name: NICKIE DUNBAR Insurance Providers Guarantor name: GURPREET DUNBAR Health Plan Information #: 1 Payer: [employer] FF NON BHP HMO Member Number: [id number] Policy Number: NA Group Number: NA Health Plan Information #: 2 Payer: [facility] FF NON BHP HMO Member Number: [id number] Policy Number: NA Group Number: NA
--- OUTSIDE RECORDS SUMMARY | 2024-10-02 12:49 | XMS_ITS | Clinical Summary ---
Author Organization [facility] Address [address] [place] [address] Care Team Providers Care Business Center Attendant Name Role Phone Unavailable Primary Care Provider Unavailabl e Social History Tobacco Use Types Packs/Day Years Used Date Smoking Tobacco: Never Assessed Sex and Gender Information Value Date Recorded Sex Assigned at Not on file Gender Identity Not on file Sexual Orientation Not on file Plan of Treatment Health Maintenance Due Date Last Done Comments Hepatitis C Virus Screening 1980 HIV Screening 01/24/1993 DTaP/Tdap/Td Vaccines (1 - Tdap) 01/24/1999 Hepatitis B Vaccines (1 of 3 - 19+ 3-dose series) 01/24/1999 COVID-19 Vaccine (2023-2 5 season) 2024 HPV Vaccines Aged Out No longer eligi ble based on patient's age to complete this topic Pneumococcal Vaccine: Pediat sue (0-5 Years) and At-Risk Patients (6 to 49 Years) Aged Out No longer eligible b ased on patient's age to complete this topic
--- OUTSIDE RECORDS SUMMARY | 2024-10-02 12:49 | XMS_ITS | Continuity of Care Document ---
Author Organization [facility] Address [address] [place] [address]- Care Team Providers Care Hospital Unit Clerk Name Role Phone Jerry HOPKINS, Tyson Coppola Primary Care Physician Encounter [facility] Date(s): 08/22/24 - 09/21/24 [facility] Adult [address] [place] [address]- Encounter Type: Triage Allergies, Adverse Reactions, Alerts No Known Allergies Immunizations Given and Recorded Vaccine Date Status Refusal Reason influenza virus vaccine, inactivated 1 09/05/24 Gi guillermo influenza virus vaccine, inactivated 2 06/09/23 Gi guillermo influenza virus vaccine, inactivated 07/12/22 Ernst rded influenza virus vaccine, inactivated 07/12/21 Give n influenza virus vaccine, inactivated 08/06/20 Ernst rded influenza virus vaccine, inactivated 08/04/17 Ernst rded [id number] bivalent booster vax 07/12/22 Recorded SARS-CoV-2 (COVID-19) mRNA BNT-162b2 vac 08/07/21 Recorded SARS-CoV-2 (COVID-19) mRNA BNT-162b2 vac 01/06/21 Recorded tetanus/diphtheria/pertussis, acel(Tdap) 11/18/17 Recorded 1Result Comment: [facility]: [id number] Screening checklist reviewed with patient. Negative for any contraindications. 2Result Comment: [id number] Medications omeprazole 20 mg oral enteric coated [...] Personnel Name: Jerry HOPKINS, Tyson Coppola Position: [facility] Physician - Primary Care Member Role: PCP Address: [address] [place] [address]- Telecom: Care Team Related Persons Name: ROSANGELA CORTES Name: NICKIE DUNBAR Insurance Providers Guarantor name: GURPREET DUNBAR [facility] Plan Information #: 1 Payer: [facility] FF NON P HMO Member Number: NA Policy Number: NA Group Number: NA
== END 2024-10-02 12:50 | disposition home or self-care (01) ==
PROVIDERS: Emergency Provider Emergency Medicine; PCP Family Medicine
DX: J10.1 Influenza due to other identified influenza virus with other respiratory manifestations (principal); R11.2 Nausea with vomiting, unspecified; M79.10 Myalgia, unspecified site; Z03.818 Encounter for observation for suspected exposure to other biological agents ruled out
CPT/HCPCS: 0241U; 80048; 85025; 99282; 99283

== ENCOUNTER → 2024-10-11 12:19 | Outpatient (BNVA) | payer OTHER, SELFPAY | PROVIDERS: PCP Family Medicine; Visit Provider Registered Nurse | DX: M25.531 Pain in right wrist (principal) | CPT/HCPCS: 73110; 99204 ==

== ENCOUNTER 2025-08-29 06:19 | Emergency (ER) | payer OTHER, SELFPAY ==
--- NOTE | ~2025-08-29 | XR_ITS ---
EXAMINATION: XR CHEST 1 VIEW HISTORY: dizziness COMPARISON: Comparison is made with the prior examination dated 06/05/2023. FINDINGS: A single AP portable view of the chest performed at 7:34 AM is submitted. The lungs are expanded and clear. There is no pleural effusion, pneumothorax, or pulmonary vascular congestion. The heart is normal in size. The bones are intact. XR/XR chest 1V IMPRESSION: No acute cardiopulmonary abnormality. Electronically signed by: Farhan Vasquez MD 08/29/2025 08:00 AM [facility]
[2025-08-29 06:33] VITALS: BP 118/76; BP 124/4; PULSE 69; PULSE 80; RESP 16; TEMP 36.2; O2SAT 99; BMI 27.3
--- NOTE | 2025-08-29 06:36 | PC.NURSE ---
triage completed and labs orders placed and [facility].
[2025-08-29 06:50] LABS: MANUAL DIFF FLAG NO
[2025-08-29 07:00] LABS: Hematocrit 47.4 % (42.0-52.0); Hemoglobin 16.3 g/dl (14.0-18.0); Imm Gran Abs Auto 0.02 X10*3/uL (0.00-0.03); Imm Gran Pct Auto 0.4 % (0.0-0.4); Lymphocytes Absolute Auto 2.9 X10*3/uL (1.2-4.9); Mean Corpuscular HGB Conc 34.4 g/dl (31.0-36.0); Mean Corpuscular Hemoglobin 31.8 pg (27.0-33.0); Mean Corpuscular Volume 92.4 fL (80.0-98.0); NRBC Abs Auto 0.000 X10*3/uL (0.0-0.012); NRBC Pct Auto 0.0 /100WBC (0.0-0.2); Platelet Count 229 X10*3/uL (160-400); Red Blood Count 5.13 X10*6/uL (4.60-5.80); White Blood Count 5.1 X10*3/uL (4.8-10.8)
[2025-08-29 07:02] LABS: Alanine Aminotransferase 23 U/L (0-40); Albumin Level 4.4 g/dL (3.5-5.0); Alkaline Phosphatase 80 U/L (39-117); Anion Gap 14 (12-20); Aspartate Amino Transferase 23 U/L (5-37); Blood Urea Nitrogen 14 mg/dL (9-16); Calcium 8.7 mg/dL (8.4-10.2); Carbon Dioxide 26 mmol/L (22-29); Chloride 105 mmol/L (96-108); Creatinine Clr Calc Pharmacy 102.4; Estimated Glomerular Filt Rate > 60; Lipase 26 U/L (8-78); Potassium 3.6 mmol/L (3.3-5.1); Sodium 141 mmol/L (135-145); Total Protein 7.0 g/dL (6.5-8.0)
[2025-08-29 07:24] LABS: Resp Syncy Virus RNA Qual PCR NEGATIVE (Negative); SARS COV2 PCR INHOUSE POSITIVE (Negative)
--- OUTSIDE RECORDS SUMMARY | 2025-08-29 07:56 | XMS_ITS | Clinical Summary ---
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 Phone Unavailable Primary Care Provider Unavailabl e Social History Tobacco Use Types Packs/Day Years Used Date Smoking Tobacco: Never Assessed Sex and Gender Information Value Date Recorded Sex Assigned at Not on file Legal Sex Male 7:40 AM EST Gender Identity Not on file Sexual Orientation Not on file Plan of Treatment Health Maintenance Due Date Last Done Comments DTaP,Tdap,and Td Vaccines (1 - Tdap) 01/24/1999 Hepatitis B Vaccines (1 of 3 - 19+ 3-dose series) 01/24/1999 HPV Vaccines (1 - 3-dose SCD M series) 01/24/2007 Depression Screening 09/07/2024 COVID-19 Vaccine (1 - 2024-2 6 season) 2025 Influenza Vaccine (#1) 2025 RSV Immunization Adult Patie nts (1 - 1-dose 75+ series) 01/24/2055 HIB Vaccines Aged Out No longer eligi ble based on patient's age to complete this topic Hepatitis A Vaccines Aged Out No long er eligible based on patient's age to complete this topic IPV Vaccines Aged Out No longer eligi ble based on patient's age to complete this topic MMR Vaccines Aged Out No longer eligi ble based on patient's age to complete this topic Meningococcal ACWY Vaccine Aged Out N o longer eligible based on patient's age to complete this topic Meningococcal B Vaccine Aged Out No l onger eligible based on patient's age to complete this topic Pneumococcal Vaccine: Pediat rics (0 to 5 Years) and At-Risk Patients (6 to 49 Years) Aged Out No longer eligible b ased on patient's age to complete this topic RSV Immunization Patients Un curtis 20 months Aged Out No longer eligible b ased on patient's age to complete this topic Varicella Vaccines Aged Out No longer eligible based on patient's age to complete this topic
--- OUTSIDE RECORDS SUMMARY | 2025-08-29 07:56 | XMS_ITS | Clinical Summary ---
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 Role Phone Unavailable Primary Care Provider Unavailabl e Social History Tobacco Use Types Packs/Day Years Used Date Smoking Tobacco: Never Assessed Sex and Gender Information Value Date Recorded Sex Assigned at Not on file Legal Sex Male 3:03 PM EDT Gender Identity Not on file Sexual Orientation Not on file Plan of Treatment Health Maintenance Due Date Last Done Comments Hepatitis C Virus Screening 1980 HIV Screening 01/24/1993 DTaP/Tdap/Td Vaccines (1 - Tdap) 01/24/1999 Hepatitis B Vaccines (1 of 3 - 19+ 3-dose series) 01/24/1999 COVID-19 Vaccine (2024-2 6 season) 2025 HPV Vaccines (No Doses Required) Completed Pneumococcal Vaccine: Pediat sue (0-5 Years) and At-Risk Patients (6 to 49 Years) Aged Out No longer eligible b ased on patient's age to complete this topic
[2025-08-29 08:31] VITALS: BP 110/66; PULSE 66; RESP 16; TEMP 36.6; O2SAT 99
[2025-08-29 08:53] LABS: Appearance Urine Clear; Glucose Urine UA 100 mg/dL (Negative); PH 5.5 (5.0-9.0); Specific Gravity - Urine >= 1.030 (1.005-1.025); UMIC TRIGGER UACC YES
--- NOTE | 2025-08-29 09:01 | ED.GENADULT ---
HPI - General Adult General Chief complaint: General Medical Stated complaint: WEAK,SHAKEY,SICK X3D WITH N/V/D PER EMS Time Seen by Provider: 08/29/25 08:35 Source: patient and EMS Mode of arrival: EMS Limitations: no limitations History of Present Illness ED Provider: DAVID MIKE PA-C HPI narrative: 45 year old male presents to the ED today for evaluation of feeling generally unwell. Patient reports cough x1 week. No sputum production. This morning, woke up and drank and NOS energy drink on an empty stomach, while driving to work felt whole body tingling and felt dizzy. When he got to work symptoms had resolved however told his coworker to call 911. Admits his mom was ill with upper respiratory infection 1 week ago. Denies N/V/D, chest pain, SOB, fevers, chills. Denies any symptoms are present. Related Data Previous Rx's ?Medication ?Instructions ?Recorded ondansetron 4 mg disintegrating 4 mg PO Q6H PRN nausea and 10/02/24 tablet vomiting #12 tabs ibuprofen 600 mg tablet 600 mg PO Q8H PRN pain #20 tabs 10/11/24 Allergies Allergy/AdvReac Type Severity Reaction Status Date / Time No Known Allergies (No Known Allergy Verified 08/29/25 06:36 Allergies*) Review of Systems Review of Systems: Yes all other systems are reviewed and are negative FOR[facility]LY [facility], [facility] Past Medical History Attestation statement: The following information was validated with the patient. Source: old records reviewed and nursing notes reviewed Social History Social History Substance Use Type: Marijuana Advance Directives: No Advance Directives Information Provided: Yes Do you have a plan to hurt others: No Plan Physical Exam ED Vital Signs: Vital Signs - 24 hr 08/29/25 06:33 08/29/25 08:31 Temperature 97.1 F 97.9 F Pulse Rate 69 66 Respiratory Rate 16 16 Blood Pressure 124/4 L 110/66 Pulse Oximetry 99 99 Oxygen Delivery Method Room Air Room Air BMI result Body Mass Index 27.3 Vital signs stable General: Well appearing, in no acute distress. Skin: Warm, dry, intact. No rashes or lesions. Head: Normocephalic, atraumatic. EENT: Hearing is intact b/l. Conjunctiva clear. PERRLA. Moist mucous membranes.? Posterior oropharynx erythematous without edema. No tonsillar exudates or masses. Uvula midline. Controlling secretions and speaking in complete sentences. Neck: Supple without LAD. FROM. Trachea midline.? Cardiac: Chest wall symmetric. RRR. No MRG. No JVD. Lungs: Normal respiratory effort without accessory muscle use. CTA bilaterally. No rales, rhonchi, or wheezes.? Abdomen: Soft, non-tender, non-distended. No rebound tenderness or guarding. Positive BS x4. Back: No midline spinous or paraspinal tenderness. No step off deformity. Ext: Upper and lower extremities atraumatic, without tenderness, deformity, swelling or erythema. Full ROM throughout. Neuro: AOx3. Normal speech. NIH 0. Strength 5/5 intact throughout. Sensation intact to light touch. NV intact distally. Reflexes 2+ bilaterally. Ambulating with steady gait. Psych: Appropriate mood and affect. Responds appropriately to questions. Course Course Course Narrative: Labs unremarkable. UA negative for infection. Chest x-ray does not demonstrate pneumonia. Patient tested positive for COVID. Educated on symptomatic treatment. Patient has remained stable throughout ED visit today. Discussed worrisome signs and symptoms and when to return to the ED. All questions answered at this time. Patient is agreeable with disposition and stable for discharge. Medications Administered Generic Name Dose Route Start Last Admin Trade Name Freq PRN Reason Stop Dose Admin Sodium Chloride 1,000 mls @ 999 mls/hr 08/29/25 08:45 08/29/25 08:43 Ns IV 08/29/25 09:45 999 mls/hr .[id number] JULIETTE Administration Discontinued Medications Generic Name Dose Route Start Last Admin Trade Name Freq PRN Reason Stop Dose Admin Acetaminophen 1,000 mg in 100 mls @ 400 mls/hr 08/29/25 08:36 08/29/25 08:39 Ofirmev IV 08/29/25 08:50 400 mls/hr ONCE ONE Administration Ondansetron HCl 4 mg 08/29/25 08:36 08/29/25 08:39 Ondansetron Hcl 4 Mg/2 Ml Vial IVPUSH 08/29/25 08:37 4 mg ONCE ONE Administration Medical Decision Making Medical Decision Making MDM Narrative: 45 year old male presents to the ED today for evaluation of feeling generally unwell. Vital signs stable. Not hypoxic or tachycardic. Afebrile. Exam benign. Differential diagnosis includes viral syndrome, strep throat, headache, migraine, pneumonia, bronchitis. Unlikely [employer]ER, retropharyngeal abscess, epiglottitis, peritonsillar abscess. Plan for viral and strep swabs, chest x-ray and re-evaluation. Medicated with IV Tylenol, Zofran and IV fluids. Differential Diagnosis Differential Diagnoses: The differential diagnosis associated with the presentation includes As above Admission/Observation Not indicated Lab Data MDM Lab Attestation statement: I reviewed the patient's lab results. As above 08/29/25 06:41 08/29/25 06:41 Labs: Lab Results 08/29/25 08/29/25 Range/Units 06:41 08:40 WBC 5.1 (4.8-10.8) X10*3/uL RBC 5.13 (4.60-5.80) X10*6/uL Hgb 16.3 (14.0-18.0) g/dl Hct 47.4 (42.0-52.0) % MCV 92.4 (80.0-98.0) fL MCH 31.8 (27.0-33.0) pg MCHC 34.4 (31.0-36.0) g/dl RDW 11.5 (11.0-16.0) % Plt Count 229 (160-400) X10*3/uL MPV 11.1 (9.4-12.4) fL Immature Gran % (Auto) 0.4 (0.0-0.4) % Neut % (Auto) 32.8 L (45-73) % Lymph % (Auto) 55.4 H (20-40) % [place] % (Auto) 8.8 (2-11) % Eos % (Auto) 1.0 (0-4) % Baso % (Auto) 1.6 (0-2) % Lymph # (Auto) 2.9 (1.2-4.9) X10*3/uL [place] # (Auto) 0.5 (0.1-1.2) X10*3/uL Eos # (Auto) 0.1 (0.0-0.4) X10*3/uL Baso # (Auto) 0.1 (0.0-0.2) X10*3/uL Abs Immat Gran (auto) 0.02 (0.00-0.03) X10*3/uL Absolute Neuts (auto) 1.7 L (2.0-8.3) x10*3/uL Absolute Nucleated RBC 0.000 (0.0-0.012) X10*3/uL Nucleated RBC % (auto) 0.0 (0.0-0.2) /100WBC Sodium 141 (135-145) mmol/L Potassium 3.6 (3.3-5.1) mmol/L Chloride 105 (96-108) mmol/L Carbon Dioxide 26 (22-29) mmol/L Anion Gap 14 (12-20) BUN 14 (9-16) mg/dL Creatinine 0.94 (0.5-1.4) mg/dL Estim Creat Clear Calc 102.4 Estimated GFR > 60 Random Glucose 164 H (60-115) mg/dL Calcium 8.7 (8.4-10.2) mg/dL Total Bilirubin 0.5 (0.0-1.0) mg/dL AST 23 (5-37) U/L ALT 23 (0-40) U/L Alkaline Phosphatase 80 (39-117) U/L Total Protein 7.0 (6.5-8.0) g/dL Albumin 4.4 (3.5-5.0) g/dL Lipase 26 (8-78) U/L Urine Color Dark Yellow Urine Appearance Clear Urine pH 5.5 (5.0-9.0) Ur Specific [place] >= 1.030 H (1.005-1.025) Urine Protein 100 (2+) H (Neg-Trace) mg/dL Urine Glucose (UA) 100 H (Negative) mg/dL Urine Ketones Trace (Negative) mg/dL Urine Blood Negative (Negative) Urine Nitrite Negative (Negative) Ur Leukocyte Esterase Trace H (Negative) Urine RBC 0-2 (0-2) /HPF Urine WBC 0-5 (0-5) /HPF Ur Squamous Epith Cells 3-5 (0-2) /HPF Urine Bacteria None Seen (None Seen) Hyaline Casts 6-10 (0-2) /LPF Urine Opiates Screen Not Detected (Not Detect) Ur Buprenorphine Scrn Not Detected (Not Detect) ng/mL Ur Oxycodone Screen Not Detected (Not Detect) ng/mL Urine Methadone Screen Not Detected (Not Detect) ng/mL Urine Fentanyl Screen Not Detected (Not Detect) Ur Barbiturates Screen Not Detected (Not Detect) Ur Phencyclidine Scrn Not Detected (Not Detect) Ur Amphetamines Screen Not Detected (Not Detect) U Benzodiazepines Scrn Not Detected (Not Detect) Urine Cocaine Screen Not Detected (Not Detect) U Marijuana (THC) Screen POSITIVE H (Not Detect) Influenza Type A (PCR) NEGATIVE (Negative) Influenza Type B (PCR) NEGATIVE (Negative) RSV RNA Qual (PCR) NEGATIVE (Negative) SARS-CoV-2 RNA (RT-PCR) POSITIVE A (Negative) Independent Interpretation I performed an independent interpretation of an: Plain X-Ray Interpretation: Chest x-ray without infiltrate or consolidation Radiology Impression Discussion of test interpretation with radiology: I have reviewed the radiologist's reading. Radiologist Impression: Procedure(s): XR chest 1V Accession Number(s): [id number] cc: Generic ED Physician; Physician,Unknown ~ Reason for Exam: dizziness EXAMINATION: XR CHEST 1 VIEW HISTORY: dizziness COMPARISON: Comparison is made with the prior examination dated 06/05/2023. FINDINGS: A single AP portable view of the chest performed at 7:34 AM is submitted. The lungs are expanded and clear. There is no pleural effusion, pneumothorax, or pulmonary vascular congestion. The heart is normal in size. The bones are intact. XR/XR chest 1V IMPRESSION: No acute cardiopulmonary abnormality. Electronically signed by: Farhan Vasquez MD 08/29/2025 08:00 AM [facility] Independent Historian Clinical information obtained from an independent historian. History obtained from or confirmed by: EMS External Record Review External record reviewed: Inpatient record Prescription Management I considered prescription management with: Pain Medication Social Determinants Patient?s care significantly limited by Social Determinants of Health including: Other Social Determinant of Health Critical Care Time Critical Care Time Critical Care Time: No Discharge Plan Discharge Clinical Impression: COVID-19 Patient Disposition: Home, Self-Care Instructions: COVID-19 (Coronavirus Disease 2019) (ED) Additional Instructions: Today you tested positive for COVID-19.? Your blood work is reassuring. Your chest xray does not demonstrate pneumonia. Your urine is not infected. Take Ibuprofen or Tylenol as needed for fevers or body aches.? Quarantine for 5 days after symptom onset and ensure you wear a mask. After 5 days you should wear a mask for 5 days after that.? Practice social distancing and good hand hygiene. Drink plenty of fluids. Follow-up with your primary care provider this week. Return to the emergency department with new or worsening symptoms. In case of emergency call 911 You can purchase a pulse oximeter from your local pharmacy or grocery store, and monitor your oxygen saturation if it goes below 94% you should return to the emergency department for further evaluation. Prescriptions: No Action ondansetron 4 mg tablet,disintegrating 4 mg PO Q6H PRN (Reason: nausea and vomiting) Qty: 12 0RF ibuprofen 600 mg tablet 600 mg PO Q8H PRN (Reason: pain) Qty: 20 0RF Referrals: Physician,Unknown J [Primary Care Provider, Medical] Print Language: Maori
[2025-08-29 09:05] LABS: Cannabinoid Screen Urine POSITIVE (Not Detect)
[2025-08-29 09:46] VITALS: BP 110/66; PULSE 66; RESP 16; TEMP 36.6; O2SAT 99
== END 2025-08-29 09:49 | disposition home or self-care (01) ==
PROVIDERS: Emergency Provider Emergency Medicine
DX: U07.1 COVID-19 (principal); R11.2 Nausea with vomiting, unspecified; R53.1 Weakness; R19.7 Diarrhea, unspecified; R42 Dizziness and giddiness; F12.90 Cannabis use, unspecified, uncomplicated
CPT/HCPCS: 71045; 80053; 80307; 81001; 83690; 85025; 87637; 96365; 96375; 99284; J0131; J2405

== ENCOUNTER → 2025-08-29 07:35 | Outpatient (BNV) | payer OTHER, SELFPAY | PROVIDERS: Emergency Provider Emergency Medicine; Visit Provider Radiology Diagnostic Radiology | DX: R42 Dizziness and giddiness (principal) | CPT/HCPCS: 71045 ==